=== PATIENT | female | born 1940 | race Caucasian/White ===

== ENCOUNTER → 2018-12-22 12:44 | Outpatient (CLI) | payer MEDICARE | END | disposition home or self-care (01) | LOC: D.HCCARDIO 12:44 | PROVIDERS: ATTEND Internal Medicine Cardiovascular Disease | DX: I48.0 Paroxysmal atrial fibrillation (principal) ==

== ENCOUNTER 2019-01-24 10:51 | Outpatient (CLI) | payer MEDICARE | END 2019-01-24 16:02 | disposition home or self-care (01) | LOC: D.CATH 10:51 | DX: I48.91 Unspecified atrial fibrillation (principal); I20.9 Angina pectoris, unspecified ==

== ENCOUNTER 2019-01-27 12:54 | Inpatient (IN) | payer MEDICARE ==
[~2019-01-27] VITALS: Ht 167.6 cm; Wt 96.1 kg
[~2019-01-27 12:54] MED LIST: BETAPACE 80 MG80 MG PO; COREG 3.1253.125 MG PO; COZAAR100 MG PO; ELIQUIS5 MG PO; GLYBURIDE5 M1 PO; KLOR-CON 1010 MEQ PO; NORVASC10 MG PO
[2019-01-27] MEDS ORDERED: METFORMIN HCL500 M1 PO (13:11)
[2019-01-27] MEDS ORDERED: GLUCOPHAGE500 MG PO (13:12)
[2019-01-27] MEDS ORDERED: LANOXIN125 MCG PO (13:13)
[2019-01-27] MEDS ORDERED: GLUCOSAMINE HC500 MG (13:14)
[2019-01-27 16:05] LABS: BASOPHILS 0.2 % (0-2); EOSINOPHILS 1.5 % (0-7); HEMATOCRIT 39.3 % (36.0-48.0); HEMOGLOBIN 13.1 g/dL (12-16); IMMATURE GRANULOCYTES 0.2 % (0-5); LYMPHOCYTES 12.7 % (15-50); MCH 30.8 pg (26.0-34.0); MCHC 33.3 g/dL (31.0-37.0); MCV 92.3 fL (80.0-100.0); MEAN PLATELET VOLUME 9.3 fL (7.4-10.4); MONOCYTES 5.9 % (2-11); NEUTROPHILS 79.5 % (40-80); PLATELET COUNT 334 10x3/uL (130-400); RBC 4.26 10x6/uL (4.00-5.40); RDW 13.5 % (11.5-14.5)
[2019-01-27 16:10] LABS: APPEARANCE CLEAR (CLEAR); BILIRUBIN NEGATIVE (NEGATIVE); COLOR YELLOW (YELLOW); GLUCOSE NEGATIVE (NEGATIVE); KETONE NEGATIVE (NEGATIVE); NITRITE NEGATIVE (NEGATIVE); PROTEIN NEGATIVE (NEGATIVE); SPECIFIC GRAVITY 1.015 (1.005-1.020); UROBILINOGEN NORMAL (NORMAL)
[2019-01-27 16:13] LABS: APTT 33.2 SECONDS (22.8-39.4); INR 1.28 (0.85-1.17); PROTIME 15.4 SECONDS (11.6-15.0)
[2019-01-27 16:30] LABS: ALBUMIN 3.8 g/dL (3.4-5.0); ANION GAP 13.3 mmol/L (8-16); BILIRUBIN - TOTAL 0.78 mg/dL (0.2-1.3); CALCIUM 9.3 mg/dL (8.5-10.1); POTASSIUM - SERUM 4.3 mmol/L (3.5-5.1); PROTEIN - SERUM 7.6 g/dL (6.4-8.2); THYROID STIMULATING HORMONE 2.02 uIU/mL (0.36-3.74); URIC ACID 4.4 mg/dL (2.6-7.2)
[2019-02-01] VITALS (8 sets, daily range): BP systolic 119–148; BP diastolic 55–73; BMI 82.5; BMI 33.4
[2019-02-01] MEDS ORDERED: K-TAB10 MEQ PO (10:35)
[2019-02-01] MEDS ORDERED: HYDROCHLOROTHIA25 MG PO (10:36)
--- NOTE | 2019-02-01 17:00 | NUR ---
PT ASSISTED INTO ICY BED, ADMISSION DATA DOCUMENTED, EKG DONE, MONITORS ON AND WORKING, VITALS STABLE, PT AWAKE AND ALERT, NO SIGNS/SYMPTOMS OF PAIN OR DISCOMFORT NOTED. CALL LIGHT WITHIN REACH.
--- NOTE | 2019-02-01 19:05 | NUR ---
Received patient resting in bed with eyes open, assessment completed per flowsheet. Patient AO x4, calm and cooperative. S1/S2 noted Controlled Afib with ST depression and occaisional PVC on telemetry. Breathing is even/unlabored on room air with O2 sat 97%, lung sounds clear throughout. Abdomen is soft/round with bowel sounds active x4, non-tender. All pulses palpable with cap refill < 3 sec, skin warm/dry. Denies pain or other needs at this time, see flowsheet for details. All VSS and will continue to monitor.
--- NOTE | 2019-02-01 21:00 | NUR ---
Patient resting in bed with eyes open, no visitors at this time. Discussed Pre-op procedures with all questions answered to satisfaction, no further needs at this time. All VSS and will continue to monitor.
--- NOTE | 2019-02-01 22:59 | NUR ---
Reassessment completed per flowsheet, no changes noted from previous assessment. S1/S2 noted Controlled Afib with occaisional PVC on telemetry. Breathing is even/unlabored on room air with O2 sat 96%, lung sounds clear throughout. All pulses palpable with cap refill < 3 sec, skin warm/dry. Denies pain or other needs at this time, see flowsheet for details. All VSS and will continue to monitor.
[2019-02-02] VITALS (63 sets, daily range): BP systolic 101–146; BP diastolic 37–74
--- NOTE | 2019-02-02 01:00 | NUR ---
Patient sleeping in bed with eyes closed, no s/s of distress at this time. No further needs, all VSS and will continue to monitor.
--- NOTE | 2019-02-02 02:58 | NUR ---
Reassessment completed per flowsheet, no changes noted from previous assessment. S1/S2 noted Controlled Afib with occaisional PVC on telemetry. Breathing is even/unlabored on room air with O2 sat 94%, lung sounds clear throughout. All pulses palpable with cap refill < 3 sec, skin warm/dry. Denies pain or other needs at this time, see flowsheet for details. All VSS and will continue to monitor.
--- NOTE | 2019-02-02 08:24 | NUR ---
REPORT RECIEVED FROM THE OFF GOING RN. ALREADY IN THE OR.
--- NOTE | 2019-02-02 10:33 | NUR ---
PT ARRIVED IN THE UNIT. PT HOOKED TO ICU MONITORS. PT REMAINS LETHARGIC FROM THE SURGERY. 1:1 CARE PROVIDED. PT NOTED TO BE IN CONTROL AFIB WITH A BBB. RIGHT JUGLAR DRESSING C/D/I. UNDER THE RIGHT JUGULAR DRESSING, IS ANOTHER DRESSING WITH A MICHAEL DRAIN WITH SCANT AMOUNT OF BLOODY DRAINAGE. BULB IS COMPRESSED. RIGHT AC IV NOTED PATENT. DRESSING C/D/I. RIGHT AISLINN NOTED WITH A GOOD WAVE FORM. CAP REFILL <3SECONDS. WRIST PROTECTOR ON. LEFT SUBCALVIAN CVL NOTED. DRESSING C/D/I. PT ARRIVED IN THE UNIT WITH PLASMALYTE AT 100ML/H, NITRO AT 10CC/H (33.33MCG/MIN) AND CLVIPREX AT 5CC/H (2.5MG/H). FC NOTED WITH CLEAR YELLOW URINE. TRACHEA MIDLINE. NO STRIDOR NOTED. CALL LIGHT IN REACH. WILL CONT 1:1 CARE.
--- NOTE | 2019-02-02 10:44 | NUR ---
CXR SHOT. PT STILL LETHARGIC BUT ABLE TO FOLLOW COMMANDS. SMILE SYMETRICAL. FREIGHT LOADER EQUAL AND STRONG. BLE EQUAL. WILL CONT POC.
--- NOTE | 2019-02-02 11:25 | NUR ---
PT MORE ALERT BUT STILL SLIGHTLY SLEEPY. PT A&OX4. CALM AND COOPERATIVE. SYMETRICAL SMILE. WILTON WEAVER EQUAL. TRACHEA MIDLINE. WILL CONT POC.
--- NOTE | 2019-02-02 12:30 | NUR ---
PT ADVANCED TO ICE CHIPS. PT TOLERATING WELL. NO DYSPAGIA NOTED. TRACHEA MIDLINE. NEUROCHECKS UNCHANGED.
--- NOTE | 2019-02-02 14:20 | NUR ---
PAGED MANUFACTURING ANALYST FOR DR CRA TO NOTIFY HIM ABOUT CONTSULT. DR PATEL MANUFACTURING ANALYST AND STATED THAT HE WILL NOTIFY DR CAR OF THE PTS CONSULT.
--- NOTE | 2019-02-02 16:00 | NUR ---
MEAL TRAY PROVIDED FOR THE PT. PT A&O X4. TRACHEA MIDLINE. NEUROCHECKS WNLS. WILL CONT POC.
--- NOTE | 2019-02-02 19:30 | NUR ---
Received patient resting in bed with eyes open, assessment completed per flowsheet. Patient AO x4, calm and cooperative. R anterior neck incision dressing CDI, no difficulties breathing/swallowing noted. S1/S2 noted Controlled Afib with BBB on telemetry. Breathing is even/unlabored on 2L via NC with O2 sat 97%, lung sounds clear throughout. R upper chest incision dressing CDI, MICHAEL x1 with small bloody drainage. Abdomen is round/soft with bowel sounds hypoactive x4, non-tender. Unger secured, concentrated yellow urine noted. R radial A-line with good waveform, remaining pulses palpable with cap refill < 3 sec. Patient denies pain or other needs at this time, repositioned for comfort. See flowhseet for details, all VSS and will continue to monitor.
--- NOTE | 2019-02-02 21:10 | NUR ---
Patient resting in bed with eyes closed, HS given without difficulty. Denies pain or other needs at this time, all VSS and will continue to monitor.
--- NOTE | 2019-02-02 23:15 | NUR ---
Reassessment completed per flowsheet, no changes noted from previous assessment. Patient AO x4, calm and cooperative. R anterior neck incision dressing CDI, no difficulties swallowing/breathing noted. S1/S2 noted Controlled Afib with BBB on telemetry. Breathing is even/unlabored on 2L via NC with O2 sat 94%, lung sounds clear throughout. R upper chest MICHAEL x1 with small bloody drainage, dressing CDI. R radial A-line positional with poor waveform, repositioned and flushed with no improvement. Remaining pulses palpable with cap refill < 3 sec, skin warm/dry. Denies pain or other needs, see flowsheet for details. All VSS and will continue to monitor.
--- NOTE | 2019-02-02 23:30 | NUR ---
R radial A-line waveform flat, repositioned and flushed without success. A-line highly positional and unable to obtain accurate reading, will use NIBP for BP.
[2019-02-03] VITALS (42 sets, daily range): BP systolic 103–135; BP diastolic 41–88; Ht 167.6 cm; Wt 96.1 kg
--- NOTE | 2019-02-03 03:10 | NUR ---
Reassessment completed per flowsheet, no change noted from previous assessment. R anterior neck incision dressing CDI, R upper chest incision dressing CDI. S1/S2 noted Controlled Afib with BBB on telemetry. Breathing is even/unlabored on 2L via NC with O2 sat 95%, lung sounds clear throughout. R upper chest MICHAEL x1 with small bloody drainage, dressing CDI. R radial A-line with flat waveform, positional unsuccessful attempt at flushing/repositioning. Remaining pulses palpable with cap refill < 3 sec, skin warm/dry. Denies pain or other needs at this time, see flowsheet for details. All VSS and will continue to monitor.
[2019-02-03 06:36] LABS: INR 1.19 (0.85-1.17); PROTIME 14.6 SECONDS (11.6-15.0)
[2019-02-03 06:42] LABS: HEMATOCRIT 32.4 % (36.0-48.0); HEMOGLOBIN 10.8 g/dL (12-16); MCH 30.5 pg (26.0-34.0); MCHC 33.3 g/dL (31.0-37.0); MCV 91.5 fL (80.0-100.0); MEAN PLATELET VOLUME 9.7 fL (7.4-10.4); RBC 3.54 10x6/uL (4.00-5.40); RDW 13.5 % (11.5-14.5); WBC 13.8 10x3/uL (4.8-10.8)
[2019-02-03 06:45] LABS: ANION GAP 12.1 mmol/L (8-16); BILIRUBIN - TOTAL 0.53 mg/dL (0.2-1.3); CALCIUM 8.1 mg/dL (8.5-10.1); CARBON DIOXIDE 27.8 mmol/L (21.0-32.0); CREATININE - SERUM 1.4 mg/dL (0.6-1.3); POTASSIUM - SERUM 3.9 mmol/L (3.5-5.1); PROTEIN - SERUM 6.1 g/dL (6.4-8.2)
--- NOTE | 2019-02-03 11:28 | OP ---
PATIENT NAME: MILI NATH MEDICAL RECORD: [id number] :40 LOCATION:[id number] ADMISSION DATE:02/01/19 SURGEON: OLIVIER MONTES MD DATE OF OPERATION: 02/02/2019 PROCEDURE PERFORMED: Right carotid endarterectomy. SURGEON: Olivier Montes MD STATIONARY STEAM ENGINEER: [place] Wiseman. ANESTHESIA: General endotracheal anesthesia. ESTIMATED BLOOD LOSS: 20 cc. SPECIMENS: Plaque. PREOPERATIVE DIAGNOSIS: Right carotid stenosis. POSTOPERATIVE DIAGNOSIS: Right carotid stenosis. CONDITION: Stable. DISPOSITION: CV ICU. OPERATIVE FINDINGS: 1. Discrete irregular and calcified plaque in the carotid bulb and proximal right internal carotid artery. The plaque feathered well, was tacked distally and a CorMatrix patch was used for closure. 2. Neurologically intact to CV ICU. OPERATIVE INDICATION: Severe coronary artery disease and severe right carotid stenosis. DESCRIPTION OF PROCEDURE: The patient was brought to the operating suite. The incision was made in the neck and taken down through the subcutaneous tissue and platysma. The common carotid was dissected out, encircled with a vessel loop. External carotid was dissected out and encircled with vessel loop. Internal carotid was dissected out. Heparin was given. After the heparin had circulated, backbleeding was controlled with a bulldog clamp and flow with a vascular clamp and backbleeding. The external carotid controlled with a vessel loop. EEG was monitored for 2 minutes and normal. The incision was made in the common carotid artery, taken out through the region of dense calcifications to a relative normal region of internal carotid. The endarterectomy was begun by dividing the plaque in the common carotid artery out to the external carotid with an eversion endarterectomy. The plaque feathered well distally. Thorough irrigation was taken. All bits of loose debris were removed. The plaque was tacked with 7-0 Prolene interrupted in the internal carotid and a CorMatrix patch was fashioned to its appropriate size, sutured along the edge of the arteriotomy. Prior to completing the anastomosis, backbleeding was allowed from all 3 major vessels, then the anastomosis was completed. After thorough irrigation of the endarterectomy bed, flow restored first with external carotid and then with internal carotid. Hemostasis was ensured with single patch sutures. A drain was placed through a separate stab wound. Protamine was given. Irrigation was undertaken. Neck was closed in 3 layers including OPERATIVE REPORT [id number] MILI NATH Dermabond on the skin and the patient was neurologically intact after extubation to the ICU. TRANSINT:[id number] Voice Confirmation ID: [id number] DOCUMENT ID: [id number] OLIVIER MONTES MD at 1128 CC: ANDRES CAR [id number] DICTATION DATE: 02/02/19 1516 BUSINESS EDUCATION PROFESSOR: 02/02/19 1714 ADM IN [place] [id number] [place] [id number]
[2019-02-03] MEDS ORDERED: NORVASC5 MG PO (11:32)
[2019-02-03] MEDS ORDERED: ULTRAM50 MG PO (11:33)
[2019-02-03] MEDS ORDERED: ASPIRIN81 MG PO (11:33)
--- NOTE | 2019-02-03 13:40 | NUR ---
1100: O2 DC'D. 1120: R RADIAL ART LINE DC'D. MANUAL PRESSURE HELD X 2 MIN. DRESSED WITH 2X2. 1130: PUMA SEGURA'Wolgfang.
--- NOTE | 2019-02-03 13:57 | NUR ---
1430: R UPPER CHEST MIHCAEL DRAIN DC'D. 1445: L SUBCLAVIAN DC'D 1450: SALINE LOCK R AC DC'D.
--- NOTE | 2019-02-03 14:37 | NUR ---
1420: VOIDED FOR 1ST TIME AFTER BARTHOLOMEW REMOVED. 1425: PREPARING FOR DISCHARGE.
--- NOTE | 2019-02-03 15:04 | NUR ---
1455: DISCHARGE INSTRUCTIONS REVIEW WITH PATIENT AND DAUGHTER. 1500: DISCHARGED HOME. ESCORTED TO VEHICLE VIA WHEELCHAIR.
--- NOTE | 2019-02-03 19:31 | MORECARE ---
CASE MANAGEMENT DISCHARGE SUMMARY PATIENT: MILI NATH UNIT: [id number] ADM DATE: 02/01/19 AGE: 78 : 40 SEX: F [facility] AUTHOR: [email or web address] PHYSICIAN: REFERRING PHYSICIAN: KAT MONTES MD DATE OF SERVICE: 02/03/19 Discharge Plan Patient Name: MILI NATH Facility: [facility]:[place] : 1940 Planned Disposition: Home Anticipated Discharge Date: Discharge Date: 02/03/2019 Expected LOS: Initial Reviewer: [email or web address] Initial Review Date: 02/03/2019 Generated: 02/03/19 8:31 pm Comments DCP- Discharge Planning Updated by [email or web address]: Dahiana Love on 02/03/19 6:[address] CM met with patient and daughter(Ulices) at bedside after explaining CM role and obtaining verbal consent. Patient lives at home alone and plans to return there upon discharge. Patient feels this would be a safe discharge. CM discussed availability / needs of home health and medical equipment. Patient denies any discharge needs at this time. Patient states her daughter will be staying with her for the next several weeks. Patient states she will have Ulices drive her home upon discharge. CM will continue to follow and assist as needed with discharge planning / needs. DCPIA - Discharge Planning Initial Assessment Updated by [id number]: Dahiana Love on 02/03/19 7:25 pm * Is the patient Alert and Oriented? Yes * How many steps to enter\exit or inside your home? * PCP JOSEP * [facility]acy [facility] * Preadmission Environment Home Alone * ADLs Independent * Equipment None * List name and contact numbers for known caregivers / representatives who currently or will assist patient after discharge: ULICES NATH - DAUGHTER- [phone], * Verbal permission to speak to the caregivers and representatives has been obtained from the patient. Yes * Community resources currently utilized None * Additional services required to return to the preadmission environment? No * Can the patient safely return to the preadmission environment? Yes * Has this patient been hospitalized within the prior 30 days at any hospital? No Patient Name: MILI NATH Page 14210 at 1931 All edits/amendments must be made on the electronic document DICTATION DATE: 02/03/191930 PROCESS LABORATORY SPECIALIST: ALEX 02/03/191930 RPT#: [id number] DC DATE:02/03/19 STATUS: DIS IN [facility] [address] [place] [address] END OF REPORT
== END 2019-02-03 15:00 | disposition home or self-care (01) | DRG 39 ==
LOC: D.SDCHOLD 13:30 → D.CVICU 02-01 10:00 → D.SDCHOLD 02-01 13:30 → D.CVICU 02-01 15:33
PROVIDERS: Internal Medicine Cardiovascular Disease; ADMIT Thoracic Surgery (Cardiothoracic Vascular Surgery); ATTEND Thoracic Surgery (Cardiothoracic Vascular Surgery)
PROC: 03UK0JZ Supplement Right Internal Carotid Artery with Synthetic Substitute, Open Approach (ICD-10-PCS; 2019-02-02)
PROC: 03CK0ZZ Extirpation of Matter from Right Internal Carotid Artery, Open Approach (ICD-10-PCS; principal; 2019-02-02 07:30)
DX: I65.21 Occlusion and stenosis of right carotid artery (principal); I25.10 Atherosclerotic heart disease of native coronary artery without angina pectoris; E11.9 Type 2 diabetes mellitus without complications; I10 Essential (primary) hypertension; I48.2 Chronic atrial fibrillation

== ENCOUNTER → 2019-01-30 13:41 | Outpatient (CLI) | payer MEDICARE ==
[2019-01-24 16:10] VITALS: BMI 33.9
[~2019-01-30 13:41] MED LIST changes: +ASPIRIN81 MG PO; +COLACE100 MG PO; +COZAAR50 MG PO; +GLUCOPHAGE500 MG PO; +GLUCOSAMINE HC500 MG; +HYDROCHLOROTHIA25 MG PO; +K-DUR20 MEQ PO; +K-TAB10 MEQ PO; +LANOXIN125 MCG PO; +LASIX40 MG PO; +LOPRESSOR25 MG PO; +METFORMIN HCL500 M1 PO; +NORVASC5 MG PO; +PERCOCET 5-3251 TAB PO; +ULTRAM50 MG PO
== END | disposition home or self-care (01) ==
LOC: D.CT 13:41
PROVIDERS: ATTEND Thoracic Surgery (Cardiothoracic Vascular Surgery)
DX: R93.89 Abnormal findings on diagnostic imaging of other specified body structures (principal)

== ENCOUNTER 2019-02-06 05:20 | Inpatient (IN) | payer MEDICARE ==
[2019-02-06] VITALS (47 sets, daily range): BP systolic 107–148; BP diastolic 47–74; BMI 34.6
[~2019-02-06 05:20] MED LIST changes: -COLACE100 MG PO; -COZAAR50 MG PO; -K-DUR20 MEQ PO; -LASIX40 MG PO; -LOPRESSOR25 MG PO; -PERCOCET 5-3251 TAB PO
--- NOTE | 2019-02-06 16:00 | NUR ---
PT ARRIVED TO ROOM AROUND 1500 ON VENT. 8.0 ETT, 23 AT THE LIP. VENT SETTINGS ON TIME OF ARRIVAL R-14, TV 550, FIO2 100%, PEEP 5. MIDSTERNAL INCISION NOTED WITH DRESSING CDI. SUBSTERNAL CT X 3 (2Y'D TOGETHER), L HENRY DRAIN IN PLACE. CT CONNECTED TO 20CM SUCTION, NO AIR NOTED. BARTHOLOMEW IN PLACE WITH YELLOW URINE NOTED. RLE HARVEST SITES WITH COBAN DRESSING FROM GROIN TO ANKLE. HAS R-RADIAL AISLINN. CVL ON LIJ. SEE IV FLOWSHEET FOR DRIPS. ASSESSMENT CHARTED IN FLOWSHEET. SAFETY MEASURES IN PLACE. WILL CONTINUE TO MONITOR.
--- NOTE | 2019-02-06 17:05 | MORECARE ---
CASE MANAGEMENT DISCHARGE SUMMARY PATIENT: MILI NATH UNIT: [id number] ADM DATE: 02/06/19 AGE: 78 : 40 SEX: F ROOM/BED: [facility] AUTHOR: LILIA CHAVEZ PHYSICIAN: REFERRING PHYSICIAN: KAT MONTES MD DATE OF SERVICE: 02/06/19 Discharge Plan Patient Name: MILI NATH Facility: [facility]:[place] : 1940 Planned Disposition: Home Anticipated Discharge Date: Discharge Date: Expected LOS: Initial Reviewer: [email or web address] Initial Review Date: 02/06/2019 Generated: 02/06/19 6:04 pm Patient Name: MILI NATH Page [phone] at 1705 All edits/amendments must be made on the electronic document DICTATION DATE: 02/06/191703 STRATEGY LEAD: ALEX 02/06/191703 RPT#: [id number] DC DATE: STATUS: ADM IN [facility] [address] [place] [address] END OF REPORT
--- NOTE | 2019-02-06 17:08 | NUR ---
BLOOD GLUCOSE 203. REGULAR INSULIN DRIP INITIATED AT THIS TIME PER ORDERS.
--- NOTE | 2019-02-06 17:16 | MORECARE ---
CASE MANAGEMENT DISCHARGE SUMMARY PATIENT: MILI NATH UNIT: [id number] ADM DATE: 02/06/19 AGE: 78 : 40 SEX: F ROOM/BED: [facility] AUTHOR: LILIA CHAVEZ PHYSICIAN: REFERRING PHYSICIAN: KAT MONTES MD DATE OF SERVICE: 02/06/19 Discharge Plan Patient Name: MILI NATH Facility: [facility]:[place] : 1940 Planned Disposition: Home Anticipated Discharge Date: Discharge Date: Expected LOS: Initial Reviewer: [email or web address] Initial Review Date: 02/06/2019 Generated: 02/06/19 6:16 pm Comments DCP- Discharge Planning Updated by [email or web address]: Dahiana Love on 02/06/19 4:[address] Patient Name: MILI NATH Admission Status: Urgent Accout number: [id number] Admission Date: 02-06-2019 : 1940 Admission Diagnosis: Attending: KAT MONTES Current LOS: 1 Anticipated DC Date: Planned Disposition: Home Primary Insurance: [facility] [employer] Discharge Planning Comments: CM met with patient and daughter(Ulices) at bedside after explaining CM role and obtaining verbal consent. Patient lives at home alone and plans to return there upon discharge. Patient feels this would be a safe discharge. CM discussed availability / needs of home health and medical equipment. Patient denies any discharge needs at this time. Patient states her daughter will be staying with her for the next several weeks. Patient states she will have Ulices drive her home upon discharge. CM will continue to follow and assist as needed with discharge planning / needs. Transcribing Machine Operator: Dahiana Love DCPIA - Discharge Planning Initial Assessment Updated by [id number]: Dahiana Love on 02/06/19 5:05 pm * Is the patient Alert and Oriented? No * How many steps to enter\exit or inside your home? * PCP JOSEP * [facility]acy [facility] * Preadmission Environment Home Alone * ADLs Independent * Equipment None * List name and contact numbers for known caregivers / representatives who currently or will assist patient after discharge: ULICES NATH - DAUGHTER -[phone], * Verbal permission to speak to the caregivers and representatives has been obtained from the patient. N/A * Community resources currently utilized None * Additional services required to return to the preadmission environment? No * Can the patient safely return to the preadmission environment? Yes * Has this patient been hospitalized within the prior 30 days at any hospital? Yes Last DP export: 02/06/19 4:04 p Patient Name: MILI NATH Page [phone] at 1716 All edits/amendments must be made on the electronic document DICTATION DATE: 02/06/191715 RN OSTOMY: ALEX 02/06/191715 RPT#: [id number] DC DATE: STATUS: [facility] [address] [place] [address] END OF REPORT
--- NOTE | 2019-02-06 18:00 | NUR ---
DR. MONTES AT BEDSIDE. CHANGED PACEMAKER SETTING TO AAI RATE 80 AMA 15.
--- NOTE | 2019-02-06 19:00 | NUR ---
REPORT RECEIVED, INITIAL ASSESSMENT COMPLETE SEE FLOW SHEET FOR FURTHER, PT INTUBATED ON VENT SETTINGS PER ORDERS/RT, PT OPENS EYES AND FOLLOWS COMMANDS, LEFT IJ CVL DRSG C/D/I INFUSING MEDS PER ORDERS; SEE IV DRIP SHEET FOR FURTHER, RT ANTERIOR NECK INCISION FROM RCEA ON 02/03/19, SITE C/D/I PARAOPTOMETRIC, MIDSTERNAL DRSG C/D/I, SUBSTERNAL DRSG WITH TPM WIRES CONNECTED TO PACEMKER WITH SETTINGS PER , PACEMAKER NOTED ON CM, CTx3 WITH ANTERIOR CT Y'D, CT TO 20CM SUCTION WITH NO AIR LEAK NOTED, SUBSTERNAL HENRY DRAIN INTACT/COMPRESSED, RLE HARVEST SITE, COBAN DRSG FROM GROIN TO ANKLE C/DI, CRITICORE BARTHOLOMEW CATH, RIGHT RADIAL ART LINE WITH GOOD WAVEFORM ON CM, SMC INTACT, CVP MONITORING, VSS, PPP, WILL CONTINUE TO MONITOR
--- NOTE | 2019-02-06 20:45 | NUR ---
UPDATED ON PT AND ABG'S, SINCERE RT AT BEDSIDE, IS OK WITH PT BEING EXTUBATED. PT EXTUBATED AT 2047, VSS, PLACED ON NC @5L/MIN, WILL CONTINUE TO MONITOR
[2019-02-07] VITALS (96 sets, daily range): BP systolic 105–147; BP diastolic 45–66; BMI 35.5
--- NOTE | 2019-02-07 01:00 | NUR ---
PT RESTING COMFORTABLY IN BED, LARGE ICE H20 GIVEN PER REQUEST, PT ABLE TO SWALLOW WITHOUT S/S OF DISTRESS, VSS, WILL CONTINUE TO MONITOR
--- NOTE | 2019-02-07 01:30 | NUR ---
PT REPOSITIONED WITH ASSIST AND DANGLED ON BEDSIDE FOR 10MIN, NO S/S OF ACUTE DISTRESS NOTED, VSS, REPOSITIONED FOR COMFORT IN BED, PT DENIES NEEDS AT THIS TIME, CHARLIE CONTINUE TO MONITOR
--- NOTE | 2019-02-07 05:38 | NUR ---
REASSESSMENT COMPLETE SEE FLOW SHEET, PT AAOx4, SWALLOWS FLUIDS WITHOUT DISTRESS, ALL DRSG'S C/D/I, VSS, PPP, WILL CONTINUE TO MONITOR
[2019-02-07 06:00] LABS: HEMATOCRIT 31.9 % (36.0-48.0); HEMOGLOBIN 10.8 g/dL (12-16); MCH 29.8 pg (26.0-34.0); MCHC 33.9 g/dL (31.0-37.0); MCV 88.1 fL (80.0-100.0); MEAN PLATELET VOLUME 9.4 fL (7.4-10.4); RBC 3.62 10x6/uL (4.00-5.40); RDW 15.5 % (11.5-14.5); WBC 17.7 10x3/uL (4.8-10.8)
--- NOTE | 2019-02-07 06:00 | NUR ---
BATH WITH NEW GOWN AND LINEN COMPLETED, PT OOB TO CHAIR WITH ASSIST FROM ABRASIVE WATER JET CUTTER OPERATOR SCOTTY, PT TOLLERATED MOVEMENT WELL, VSS, WILL CONTINUE TO MONITOR
[2019-02-07 06:16] LABS: ALBUMIN 2.6 g/dL (3.4-5.0); ANION GAP 11.5 mmol/L (8-16); BILIRUBIN - TOTAL 0.67 mg/dL (0.2-1.3); CALCIUM 7.6 mg/dL (8.5-10.1); CARBON DIOXIDE 28.4 mmol/L (21.0-32.0); POTASSIUM - SERUM 3.9 mmol/L (3.5-5.1); PROTEIN - SERUM 4.7 g/dL (6.4-8.2)
[2019-02-07 06:26] LABS: CREATININE - SERUM 1.3 mg/dL (0.6-1.3)
--- NOTE | 2019-02-07 06:30 | NUR ---
PACEMAKER FIRING BUT NOT CAPTURING ON CM, 0636: NOTIFIED AND UPDATED, 0637: ORDERS RECEVED TO TURN OFF TPM AND AMIODARONE. WILL CONTINUE TO MONITOR. 0645: REPORT GIVEN TO DAY SHIFT RN
--- NOTE | 2019-02-07 07:47 | NUR ---
DR. MONTES AT BEDSIDE. ORDERED DOBUTAMINE TO BE DECREASED TO 3MCG/KG/MIN AT THIS TIME. ALSO ORDERED AISLINN TO BE DISCONTINUED AND 12 LEAD EKG.
--- NOTE | 2019-02-07 07:51 | OP ---
PATIENT NAME: MILI NATH MEDICAL RECORD: [id number] :40 LOCATION:D.CVI D.CV04 ADMISSION DATE:02/06/19 SURGEON: OLIVIER MONTES MD DATE OF OPERATION: 02/06/2019 SURGEON: Olivier Montes MD ANIMAL ATTENDANT: Montana Wiseman OPERATION PERFORMED: 1. Coronary artery bypass graft times 4 (left internal mammary artery to LAD, reverse saphenous vein graft from aorta to first diagonal, aorta to ramus intermedius, and aorta to right coronary artery). 2. Endoscopic saphenous vein harvest. 3. Surgical Maze procedure with radiofrequency ablation on the right and left side of the heart, and cryo. 4. Left atrial appendage occlusion device application. PREOPERATIVE DIAGNOSIS: Coronary artery disease and atrial fibrillation. POSTOPERATIVE DIAGNOSIS: Coronary artery disease and atrial fibrillation. ANESTHESIA: General endotracheal anesthesia. ESTIMATED BLOOD LOSS: Total cardiopulmonary bypass with Cell Saver re-transfusion and 2 packed red blood cells. COMPLICATIONS: None. SPECIMENS: None. CONDITION: Stable. DISPOSITION: To the CV ICU. OPERATIVE FINDINGS: 1. Transesophageal echocardiography revealed 35% ejection fraction with septal dyskinesis, this persisted after coronary artery bypass graft. 2. Moderately varicose and thin veins harvested endoscopically from the right lower extremity. 3. Full surgical Maze procedure and placement of left atrial appendage occlusion device using AtriCure radiofrequency and cryo system. 4. LAD 1.5 mm with severe disease, anastomosis, and plaque. Good Doppler signal after anastomosis and after reversal of the heparin. 5. First diagonal 1.5 mm with severe disease. 6. Ramus intermedius 2.0 mm with severe disease out to the bifurcation point. 7. Codominant right coronary artery 1.5 mm with severe disease. 8. Paced off cardiopulmonary bypass with underlying junctional rhythm. OPERATIVE INDICATION: Atrial fibrillation and coronary artery disease. DESCRIPTION OF PROCEDURE: The patient was brought to the operating suite. General anesthesia was obtained. The patient was prepped and draped. Greater saphenous vein harvested endoscopically from the right lower extremity. Side branches were divided by electrocautery. The vessels were ligated, proximal and OPERATIVE REPORT [id number] HARI NATHVICKY Dutton distal, and removed. Side branches were oversewn or tied. Later, the leg was closed in 2 layers and wrapped with an elastic wrap. Median sternotomy incision was made. Subcutaneous tissue divided with electrocautery. The sternum was divided with a saw. The left hemisternum was elevated. The left lower cavity was entered. Left lobe remains taken down as a pedicle graft. Sternal retractor was placed. Pericardium was opened. Heparin was given. The aorta was cannulated. Bicaval cannulation was performed. Superior vena cava and inferior vena cava were free. The internal mammary was clipped distally and made ready for anastomosis. The patient was placed on cardiopulmonary bypass after activated clotting time was appropriately elevated. Sites for distal anastomosis were selected. The left pulmonary veins and the right pulmonary veins were encircled and pulmonary vein radiofrequency ablation was performed. An opening was made in the right atrium and the right atrial radiofrequency ablation sites were made. Then, a pursestring was placed and the retrograde cardioplegia cannula was inserted. Antegrade cardioplegia cannula was inserted. The patient was cooled. Crossclamp was placed. Cardioplegia was given antegrade and retrograde and this was repeated at 15 to 20 minutes and the crossclamp time including down the completed vein grafts. The right atrium was opened and the interatrial groove and the box lesion was completed with radiofrequency ablation and the 2 interatrial and one epicardial cryo lesion was performed. The mitral valve appeared to be normal. The left atrium was later closed with a pledgeted Prolene suture line. Distal anastomoses were performed in a standard technique. Proximal anastomosis with a single cross-clamp technique. Left ventricular apex was de-aired and the crossclamp was removed. Aortic root was de-aired. Proximal anastomoses were tied down. Vein grafts were de-aired and flow restored. Transesophageal echocardiography confirmed no air. The patient was paced with atrial and ventricular pacing wires, fully rewarmed, weaned from cardiopulmonary bypass and was stable. The patient was decannulated. The cannula sites were oversewn in the retrograde site and in the aorta and then protamine was given. Graft lay appropriately. Hemostasis was ensured. Left chest was evacuated and irrigated. Pericardial fat was loosely reapproximated in the midline. The internal mammary harvest site was inspected for bleeding. Sternum was closed with wires. Fascia was closed. Subcutaneous tissue was closed. Skin was closed. Dermabond was placed. The needle and sponge counts reported correct and the patient was taken to the ICU in stable condition. TRANSINT:[id number] Voice Confirmation ID: [id number] DOCUMENT ID: [id number] OLIVIER MONTES MD at 0751 CC: SARY WEST M.D. and ANDRES CAR [id number] DICTATION DATE: 02/06/191720 PSYCHOLOGICAL OPERATIONS OFFICER: 02/06/192056 ADM IN [facility] [address] [id number]
--- NOTE | 2019-02-07 09:52 | NUR ---
AM MEDS GIVEN. SUBSTERNAL DRESSING CHANGED PER ORDERS. CTX3 IN PLACE TO 20CM SUCTION. HENRY DRAIN IN PLACE. TPM WIRES CONNECTED. PACEMAKER OFF AT THIS TIME. NO SIGNS OF INFECTION NOTED. WILL CONTINUE TO MONITOR.
--- NOTE | 2019-02-07 14:50 | NUR ---
CHEST TUBES REMOVED BY DR. MONTES. SUBSTERNAL DRESSING REPLACED AT THIS TIME. HENRY DRAIN REMAINS IN PLACE. PT RESTING IN BED. WILL CONTINUE TO MONITOR.
[2019-02-07 17:47] LABS: CHOL - HDL RATIO 3.6 ratio (2.3-4.1); LDL-HDL RATIO 1.8 ratio (1.5-3.5)
--- NOTE | 2019-02-07 18:06 | NUR ---
ATE ABOUT 50% OF DINNER. ASSITED PT BACK TO BED. WILL COTNINUE TO MONITOR.
--- NOTE | 2019-02-07 18:18 | NUR ---
PERCOCET 5 GIVEN FOR PAIN AT THIS TIME. WILL CONTINUE TO MONITOR.
--- NOTE | 2019-02-07 19:18 | NUR ---
REPORT RECEIVED, SHIFT ASSESSMENT COMPLETED PER FLOW SHEET. PPP. LT IJ CVL PATENT, INFUSING DOBUTAMINE AT 3 MCG/KG/MIN INFORMED BY DAY SHIFT RN THAT THIS IS A SET RATE PER DR. MONTES'S ORDERS, INSULIN DRIP AT 2 UNITS/HR, AND NITROGLYCERIN DRIP AT 4 ML/HR. BARTHOLOMEW CATHER TO GRAVITY SECURED, DRAINING YELLOW URINE. ANGY HOSE AND SCD'S ON. DENIES PAIN OR NEEDS. CALL LIGHT WITHIN REACH. SEE FLOW SHEET FOR COMPLETE ASSESMENT. WILL CONTINUE TO MONITOR.
--- NOTE | 2019-02-07 20:51 | NUR ---
SCHEDULED MEDS GIVEN, WATER PROVIDED, NO DIFFICULTY SWALLOWING. DENIES NEEDS. CALL LIGHT WITHIN REACH.
--- NOTE | 2019-02-07 22:07 | NUR ---
POTASSIUM RESULT NOW AVAILABLE. 10 MEQ OF KCL INFUSING PER PROTOCOL VIA LT IJ CVL.
--- NOTE | 2019-02-07 23:18 | NUR ---
REASSESSMENT COMPLETED PER FLOW SHEET, SEE FOR DETAILS. NO ACUTE DISTRESS NOTED. DENIES NEEDS. CALL LIGHT WITHIN REACH. WILL CONTINUE TO MONITOR.
[2019-02-08] VITALS (39 sets, daily range): BP systolic 102–166; BP diastolic 52–74
--- NOTE | 2019-02-08 01:38 | NUR ---
CALL LIGHT ANSWERED, C/O PAIN, PRN PERCOCET GIVEN, SEE EMAR FOR DETAILS. ASSISSTED WITH REPOSITIONING IN BED FOR COMFORT, DENIES OTHER NEEDS. CALL LIGHT WITHIN REACH.
--- NOTE | 2019-02-08 03:12 | NUR ---
REASSESSMENT COMPLETED PER FLOW SHEET, SEE FOR DETAILS. NO ACUTE CHANGES NOTED. DENIES PAIN OR NEEDS. WILL CONTINUE TO MONITOR.
--- NOTE | 2019-02-08 05:00 | NUR ---
COMPLETE BED BATH GIVEN, BARTHOLOMEW CARE PROVIDED. SUBSTERNAL DRESSING CHANGED, TPM WIRES SECURED. TOLERATED ALL WELL. DENIES NEEDS. CALL LIGHT WITHIN REACH.
--- NOTE | 2019-02-08 05:50 | NUR ---
ASSISSTED OOB TO CHAIR, X2 PERSON ASSISST. DENIES NEEDS. CALL LIGHT WITHIN REACH. WILL CONTINUE TO MONITOR.
[2019-02-08 06:26] LABS: HEMATOCRIT 31.8 % (36.0-48.0); HEMOGLOBIN 10.5 g/dL (12-16); MCH 29.4 pg (26.0-34.0); MCV 89.1 fL (80.0-100.0); MEAN PLATELET VOLUME 9.7 fL (7.4-10.4); RBC 3.57 10x6/uL (4.00-5.40); RDW 15.3 % (11.5-14.5); WBC 20.1 10x3/uL (4.8-10.8)
[2019-02-08 07:03] LABS: ALBUMIN 2.7 g/dL (3.4-5.0); ANION GAP 12.8 mmol/L (8-16); BILIRUBIN - TOTAL 1.05 mg/dL (0.2-1.3); CARBON DIOXIDE 26.7 mmol/L (21.0-32.0); CREATININE - SERUM 1.2 mg/dL (0.6-1.3); POTASSIUM - SERUM 3.5 mmol/L (3.5-5.1); PROTEIN - SERUM 5.3 g/dL (6.4-8.2)
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
--- NOTE | 2019-02-08 10:30 | NUR ---
DR MANZANARES IN UNIT AND NOTIFIED THAT TPM NOT PACING CORRECTING AND HR DOES SHOW TO DROP OCCASIONALLY, ORDERS TO DROP SENSITIVITY FROM 2.0 TO 0.8.
--- NOTE | 2019-02-08 10:54 | NUR ---
TPM CONTINUED TO FAIL TO CAPTURE, DR MANZANARES IN UNIT CHANGED VMA TO 20
--- NOTE | 2019-02-08 11:20 | TEE ---
PATIENT:MILI NATH MEDICAL RECORD: [id number] LOCATION:[place] [address] AGE OF PATIENT: 78 ADMISSION DATE: 02/06/19 SEX: F REFERRING PHYSICIAN: INTERPRETING PHYSICIAN: DANIELA CRAIG MD TRANSESOPHAGEAL ECHOCARDIOGRAM Date: 02/06/19 HÉCTOR CHARGE Y INDICATIONS: CABG PREMEDICATIONS: PATIENT'S RESPONSE PROCEDURE DOPPLER MEASUREMENTS: LVIT LA PA RA LVOT RVOT Asc. Ao AV Gradient Peak AV Mean AV Area MV Gradient Peak MV Mean MV Area INTERPRETATION: Doppler: 2-D: COLOR FLOW DOPPLER NORMAL SALINE STUDY: MISCELLANOUS: DIAGNOSIS: PLAN: Brick Setter Operator:2 Dr. Crowder Gyn: Lexi POSADA COMMENTS: DATE OF SERVICE: 02/07/2019 PROCEDURE: Transesophageal echo evaluation of valvular structures during bypass surgery. FINDINGS: 1. Left ventricular chamber size is mildly dilated. Left ventricular systolic function is [id number]-[id number] reduced at 35% to 40%. 2. Left atrium, right atrium, and right ventricular chamber sizes are within TRANSESOPHAGEAL ECHOCARDIOGRAM REPORT [id number] MILI NATH normal limit. 3. Valvular structures have normal structure and motion. 4. Doppler interrogation reveals mild mitral regurgitation. No other valvular insufficiency or stenosis. 5. No evidence of pericardial effusion or left ventricular thrombus. TRANSINT:[id number] Voice Confirmation ID: [id number] DOCUMENT ID: [id number] at 1120 CC: [id number] DICTATION DATE: 02/07/19 1213 MACHINE CHAIN MAKER: 02/07/19 2157 ADM IN [id number] [place] [address]
--- NOTE | 2019-02-08 11:33 | NUR ---
tpm conitnues to fail to capture, per dr bowling vma turned up to 25
--- NOTE | 2019-02-08 17:10 | NUR ---
1300 ATE 100% LUNCH 1400 TPM FAILING TO CAPTURE, PT ASSISTED TO BED DR MONTES NOTIFIED, IN UNIT AND CHANGED POLORIZATION OF VENTRICULAR TPM WIRES, CAPTURE NOTED ON MONITOR AND TPM, SUBSTERNAL DRESSING CHANGED 1600 ASSISTED UP TO CHAIR,I&OS DONE. 1700 DINNER TRAY SERVED
--- NOTE | 2019-02-08 18:03 | NUR ---
1700 DR MONTES CHANGED TPM RATE VVI70
--- NOTE | 2019-02-08 19:30 | NUR ---
PATIENT BACK TO BED WITH ASSIST FROM CHAIR. SHIFT ASSESSMENT COMPLETE. CALL LIGHT WITHIN REACH, BED IN LOW POSITION.
--- NOTE | 2019-02-08 21:40 | NUR ---
DRESSING CHANGED WITH ASEPTIC TECHINQUE USED. DUE TO SEROSANG SATURATION. PREVIOUS CT SITES ARE WITHOUT REDNESS OR EDEMA NOTED. TPM WIRES SECURE. HENRY DRAIN SITE IS WITHOUT REDNESS OR EDEMA NOTED.
[2019-02-09] VITALS (24 sets, daily range): BP systolic 104–148; BP diastolic 58–92
[2019-02-09 06:51] LABS: HEMATOCRIT 31.5 % (36.0-48.0); HEMOGLOBIN 10.3 g/dL (12-16); MCH 29.5 pg (26.0-34.0); MCHC 32.7 g/dL (31.0-37.0); MCV 90.3 fL (80.0-100.0); MEAN PLATELET VOLUME 10.1 fL (7.4-10.4); RBC 3.49 10x6/uL (4.00-5.40); RDW 15.3 % (11.5-14.5)
[2019-02-09 06:52] LABS: ALBUMIN 2.4 g/dL (3.4-5.0); BILIRUBIN - TOTAL 0.84 mg/dL (0.2-1.3); CALCIUM 8.3 mg/dL (8.5-10.1); CREATININE - SERUM 1.2 mg/dL (0.6-1.3); PROTEIN - SERUM 5.5 g/dL (6.4-8.2)
[2019-02-09 07:03] LABS: ANION GAP 8.5 mmol/L (8-16); POTASSIUM - SERUM 4.5 mmol/L (3.5-5.1)
--- NOTE | 2019-02-09 07:38 | NUR ---
UP IN CHAIR AWAKE AT THIS TIME FEEDING SELF BREAKFAST. NO ACUTE DISTRESS NOTED. PT ALERT AND ORIENTED. CALL LIGHT IN REACH. PERSONAL ITEMS IN REACH. WILL CONTINUE PLAN OF CARE.
--- NOTE | 2019-02-09 09:37 | NUR ---
PUMA SEGURA AT THIS TIME PER DR MONTES ORDERS. PT ALSO RECIEVED SIOBHAN CARE. NO ACUTE DISTRESS NOTED.CHARLIE LCONTINUE PLAN OF CARE.
--- NOTE | 2019-02-09 10:50 | NUR ---
100ML SEROUS FLUID REMOVED FROM HENRY DRAIN AT THIS TIME. PT UP IN CHAIR. DENIES ANY NEEDS. WILL CONTINUE PLAN OF CARE.
--- NOTE | 2019-02-09 11:04 | NUR ---
Nutrition Follow Up: Pt was asleep at the time of RD visit. Interview deferred at this time. Diet: ADA PO Intake: 57% meal avg I<O Wt gain noted No BM since admit Labs reviewed Meds noted including Reglan Rec continue current diet. RD following.
--- NOTE | 2019-02-09 12:54 | NUR ---
UP IN CHAIR AWAKE AT THIS TIME. DENIES ANY NEEDS. NO ACUTE DISTRESS NOTED. CALL LIGHT IN REACH. WILL CONTINUE PLAN OF CARE.
--- NOTE | 2019-02-09 13:56 | NUR ---
CONTINENT VOID NOTED TO TOILET AT THIS TIME. STAFF ASSISTED PT WITH WALK VIA STAND BY ASSIST, PT USES WALKER. NO ACUTE DISTRESS NOTED. WILL CONTINUE PLAN OF CARE.
--- NOTE | 2019-02-09 14:54 | NUR ---
SUBSTERNAL DRESSING CHANGE PROVIDED AT THIS TIME PER ORDERS TO CHANGE DAILY. CHANGED TO ORDER USING STERILE PROCEDURE. NO ACUTE DISTRES NOTED. NO S/S OF REDNESS, EDEMA, DRAINAGE NOTED. PT UP IN BED AWAKE. DENIES ANY NEEDS. WILL CONTINUE PLAN OF CARE.
--- NOTE | 2019-02-09 16:56 | NUR ---
NO ACUTE DISTRESS NOTED.NO CHANGE. PT UP IN BED RESTING, RESPIRATIONS STEADY AND UNLABORED RATE. AWAKENS EASILY WHEN SPOKEN TO. CALL LIGHT AND PERSONAL ITEMS IN REACH. WILL CONTINUE PLAN OF CARE.
--- NOTE | 2019-02-09 17:21 | NUR ---
UP IN CHAIR BESIDE BED EATING SUPPER AND VISITING WITH VISITOR. NO ACUTE DISTRESS NOTED. WILL CONTINUE PLAN FO CARE.
--- NOTE | 2019-02-09 18:25 | NUR ---
ASSISTED TO TOILET AT THIS TIME VIA STAND BY ASSIST. CONTINENT VOID NOTED. NO ACUTE DISTRESS NOTED. CALL LIGHT IN REACH. UP IN CHAIR AT THIS TIME. WILL CONTINUE PLAN OF CARE.
--- NOTE | 2019-02-09 19:40 | NUR ---
REPORT RECEIVED, SHIFT ASSESSMENT COMPLETED PER FLOW SHEET. SITTING IN CHAIR. AAOX4. PPP. TMP SET TO VVI 60, VMA 15. LT SUBSTERNAL CT TO HENRY DRAIN COMPRESSED, SEROSANGUINEOUS OUTPUT NOTED. DENIES NEEDS. SEE FLOW SHEET FOR COMPLETE ASSESSMENT. WILL CONTINUE TO MONITOR. CALL LIGHT WITHIN REACH.
--- NOTE | 2019-02-09 20:49 | NUR ---
SCHEDULED MEDS GIVEN, WATER PROVIDED. NO DIFFICULTY SWALLOWING. C/O PAIN, PRN PERCOCET GIVEN. DENIES OTHER NEEDS. CALL LIGHT WITHIN REACH. WILL CONTINUE TO MONITOR.
--- NOTE | 2019-02-09 22:00 | NUR ---
RESTING, DENIES NEEDS, CALL LIGHT WITHIN REACH.
--- NOTE | 2019-02-09 23:35 | NUR ---
REASSESSMENT COMPLETED PER FLOW SHEET, SEE FOR DETAILS. NO ACUTE CHANGES NOTED. DENIES NEEDS. CALL LIGHT WITHIN REACH. WILL CONTINUE TO MONITOR.
[2019-02-10] VITALS (24 sets, daily range): BP systolic 120–151; BP diastolic 45–73
--- NOTE | 2019-02-10 01:00 | NUR ---
NO ACUTE CHANGES NOTED, RESTING COMFORTABLY. DENIES NEEDS. WILL CONTINUE TO MONITOR.
--- NOTE | 2019-02-10 03:01 | NUR ---
REASSESSMENT COMPLETED PER FLOW SHEET, SEE FOR DETAILS. NO ACUTE CHANGES NOTED. ASSISSTED OOB TO BR. VOID X1. ASSISSTED BACK IN BED. DENIES OTHER NEEDS. CALL LIGHT WITHIN REACH.
--- NOTE | 2019-02-10 05:00 | NUR ---
COMPLETE BED BATH GIVEN, COMPLETE BED LINEN CHANGE PROVIDED. TOLERATED WELL.
[2019-02-10 06:30] LABS: HEMATOCRIT 31.7 % (36.0-48.0); HEMOGLOBIN 10.3 g/dL (12-16); MCH 29.5 pg (26.0-34.0); MCHC 32.5 g/dL (31.0-37.0); MCV 90.8 fL (80.0-100.0); MEAN PLATELET VOLUME 9.9 fL (7.4-10.4); RBC 3.49 10x6/uL (4.00-5.40); WBC 15.5 10x3/uL (4.8-10.8)
--- NOTE | 2019-02-10 06:30 | NUR ---
ASSISSTED OOB TO CHAIR, CALL LIGHT AND BELONGINGS WITHIN REACH.
[2019-02-10 07:07] LABS: ALBUMIN 2.5 g/dL (3.4-5.0); ANION GAP 13.1 mmol/L (8-16); BILIRUBIN - TOTAL 0.89 mg/dL (0.2-1.3); CALCIUM 8.5 mg/dL (8.5-10.1); CARBON DIOXIDE 27.4 mmol/L (21.0-32.0); CREATININE - SERUM 1.1 mg/dL (0.6-1.3); POTASSIUM - SERUM 4.5 mmol/L (3.5-5.1); PROTEIN - SERUM 5.7 g/dL (6.4-8.2)
--- NOTE | 2019-02-10 07:20 | NUR ---
SHIFT REPORT RECEIVED. A&O X 4. UP IN CHAIR. ON 2L OF O2 VIA NC. LIJ SALINE LOCKED. MIDSTERNAL DRESSING C/D/I. SUBSTERNAL DRESING CDI. HENRY DRAIN IN PLACE WITH SEROSANGUINOUS DRAINAGE NOTED. ATRIAL TPM WIRE COILED AND SECURED. VENTRICULAR TPM WIRE CONNECTED. PACEMAKER VVI/RATE60/VMA15. SBP IN 140S AT THIS TIME. RATES PAIN 5/10 AT INCISION SITE. PULLS 500-750 ON INCENTIVE SPIROMETER. RL HARVES SITES HUMAN RESOURCES INTERN. ANGY HOSE ON BOTH LE. COMPLETE SHIFT ASSESSMENT CHARTED IN FLOWSHEET. CALL LIGHT IN REACH. WILL CONTINUE TO MONITOR.
--- NOTE | 2019-02-10 09:40 | NUR ---
SUBSTERNAL DRESSING CHANGED PER ORDERS. IODINE OITMENT APPLIED TO AREA, BIO PATCH APPLIED TO TPM WIRES. 4X4'S USED TO COVER PREVIOUS CT INSERTION SITES. TAGEDERM DRESSING APPLIED OVER SITE. PT RESTING COMFORTABLY. ORAL CARE PRODUCTS PROVIDED. NO FURTHER NEEDS AT THIS TIME. WILL CONTINUE TO MONITOR.
--- NOTE | 2019-02-10 10:50 | NUR ---
DR. MONTES AT BEDSIDE. CHANGED TPM SETTINGS TO VVI/R-70.
--- NOTE | 2019-02-10 13:20 | NUR ---
VENOUS ACCESS NURSE AT BEDSIDE.
--- NOTE | 2019-02-10 14:15 | NUR ---
RIJ CVL DC'D PER ORDERS. PRESSURE APPLIED TO AREA FOR ABOUT 10MIN. PT RESTING COMFORTABLY IN BED. NO FURTHER NEEDS. WILL CONTINUE TO MONITOR.
--- NOTE | 2019-02-10 16:40 | NUR ---
AMBULATED TO BATHROOM WITH MINIMAL ASSIST. NO STOOL NOTED. DINNER TRAY DELIVERED AND SET UP. NO FURTHER NEEDS AT THIS TIME.
--- NOTE | 2019-02-10 17:39 | NUR ---
AMBULATED TO BATHROOM. MODERATE AMOUNT OF LIGHT BROWN, FORM STOOL NOTED. NO FURTHER NEEDS AT THIS TIME. WILL CONTINUE TO MONITOR.
--- NOTE | 2019-02-10 19:00 | NUR ---
REPORT REC'D,PT CARE ASSUMED. ASSESSMENT COMPLETED PER FLOWSHEETS. PT SITTING IN CHAIR AT THIS TIME ALERT AND ORIENTED X4, CM SHOWS PACED HR AT 70, TPM INTACT AND SECURED, MIDSTERNAL DRESSING INTACT AND CLEAN, SUBSTERNAL DRAIN INTACT WITH SEROUS DRAINGE.EMTY 40CC DRAINAGE AND COMPRESSED THE DRAIN. PPP. CALL LIGHT IN REACH. WILL CONT TO MONITOR.
--- NOTE | 2019-02-10 20:00 | NUR ---
PT REQUESTED TO RETURN TO BAD, ASSISTED BY X2 NURSE, PT CHUCK WELL. REPOSITIONED FOR COMFORT. PT C/O PAIN 6/10 ON SCALE. PAIN MED GIVEN PER ORDER. WILL CONT TO MONITOR.
--- NOTE | 2019-02-10 21:15 | NUR ---
SCHDULED MEDS GIVEN PER ORDER WITHOUT DIFFIC. PT CHUCK WELL. DENIES ANY DISCOMFORT AT THIS TIME.VSS. PACED ON CM. CONT TO MONITOR.
--- NOTE | 2019-02-10 23:00 | NUR ---
REASSESSMENT COMPLETED PER FLOWSHEETS. VSS. NO ACUTE CHANGES IN PT CONDITION. NO NEEDS VOICES AT THIS TIME. CALL LIGHT IN REACH. WILL CONT TO MONITOR.
[2019-02-11] VITALS (25 sets, daily range): BP systolic 130–163; BP diastolic 52–72
--- NOTE | 2019-02-11 02:14 | NUR ---
0214 CALL LIGHT ANSWERED. PT AMBULATED TO BATHROOM WITH MINIMAL ASSISTANCE. 0216 AFTER PT VOIDED. RHYTHM CHANGE UPON PT MOVEMENT. FAILURE TO CAPTURE PACER SPIKE. PT ASSISTED IN BED RNX3 AT BEDSIDE. CRASH CART PREPPED. 0218 WHEN IN BED PT PACEMAKER BEGINING TO CAPTURE. PACEMAKER BATTERY CHANGED PER PROTOCOL. WILL NOTIFY IN AM.
--- NOTE | 2019-02-11 03:00 | NUR ---
REASSESSMENT COMPLETED PER FLOWSHEETS. PT RESTING QUIETLY WITHOUT DISTRESS AT THIS TIME. PACED ON MONITOR. NO NEEDS VOICES. CALL LIGHT IN REACH. CONT TO MONITOR.
[2019-02-11 05:20] LABS: HEMATOCRIT 32.8 % (36.0-48.0); HEMOGLOBIN 10.6 g/dL (12-16); MCH 29.4 pg (26.0-34.0); MCHC 32.3 g/dL (31.0-37.0); MCV 90.9 fL (80.0-100.0); MEAN PLATELET VOLUME 9.6 fL (7.4-10.4); RBC 3.61 10x6/uL (4.00-5.40); RDW 14.9 % (11.5-14.5); WBC 13.9 10x3/uL (4.8-10.8)
[2019-02-11 05:31] LABS: ALBUMIN 2.4 g/dL (3.4-5.0); ANION GAP 9.2 mmol/L (8-16); BILIRUBIN - TOTAL 0.91 mg/dL (0.2-1.3); CALCIUM 8.7 mg/dL (8.5-10.1); CARBON DIOXIDE 30.5 mmol/L (21.0-32.0); POTASSIUM - SERUM 4.7 mmol/L (3.5-5.1); PROTEIN - SERUM 5.7 g/dL (6.4-8.2)
--- NOTE | 2019-02-11 06:16 | NUR ---
DR MANZANARES INFORMED OF PT STATUS. ORDER TO INCREASE TPM OUTPUT TO 20. RECEIVED. OUTPUT INCREASED. VSS WILL CONTINUE TO MONITOR.
--- NOTE | 2019-02-11 10:18 | NUR ---
0920: REC'D CALL FROM DR. CRAMER TO CALL [employer] REP TO SEE WHAT TIME HE COULD BE HERE TODAY. 0927: PAGED PLACED TO [employer] REP THROUGH ANSWERING SERVICE. 0953: [employer] REP RETURNED CALL. STATED THE EARLIEST HE COULD BE HERE TODAY WOULD BE 1400 OR 1500. 0955: DR. MANZANARES NOTIFIED OF REP'S MESSAGE. INSTRUCTED BY DR. MANZANARES TO CALL REP BACK FOR PLACEMENT OF PACEMAKER @ 1400. 1002: [employer] REP CALLED BACK THROUGH ANSWERING SERVICE TO INFORM OF TIME FOR PACEMAKER PLACEMENT.
[2019-02-11 12:38] LABS: APTT 26.5 SECONDS (22.8-39.4); INR 1.1 (0.85-1.17); PROTIME 13.6 SECONDS (11.6-15.0)
--- NOTE | 2019-02-11 13:50 | NUR ---
L BRACHIAL ART LINE DC'D. MANUAL PRESSURE HELD X 5 MIN. 2X2 DRESSING SECURED WITH TAPE TO SITE.
--- NOTE | 2019-02-11 14:16 | NUR ---
1400: STAT PAGE PLACED TO [employer] REP. OR CREW HERE TO TRANSPORT PT. 1410: CALL RETURNED BY [employer] REP. IN HOSPITAL PARKING LOT. PATIENT TRANPORTED TO OR VIA BED.
--- NOTE | 2019-02-11 16:20 | NUR ---
RETURN FROM OR VIA BED. CONNECTED TO MONITOR. VS OBTAINED. DRESSING TO OPERATIVE SITE OF L SHOULDER. L ARM IN SLING.
--- NOTE | 2019-02-11 21:00 | NUR ---
1900 REPORT RECEIVED CARE ASSUMED. ASSESSMENT DONE SEE FLOW SHEET VSS. NO SIGNS OF ACUTE DISTRESS NOTED. INCREASE IN TEMP NOTED. 1999 DR MANZANARES INFORMED OF PT STATUS. ORDER TO CONTINUE IS AND COUGH AND TURN. 2100 MEDS GIVEN PER OCT. VSS WILL CONTINUE TO MONITOR.
--- NOTE | 2019-02-11 21:00 | NUR ---
1900 REPORT RECEIVED CARE ASSUMED ASSESSMENT DONE SEE FLOW SHEET VSS. 2100 MEDS GIVEN PER MAR VSS WILL CONTIUE TO MONITOR.
--- NOTE | 2019-02-11 23:00 | NUR ---
REASSESSMENT DONE SEE FLOW SHEET VSS.
[2019-02-12] VITALS (24 sets, daily range): BP systolic 133–177; BP diastolic 51–93
--- NOTE | 2019-02-12 01:00 | NUR ---
PT IN BED RESTING WATER PROVIDED PER REQUEST WILL CONTINUE TO MONITOR.
--- NOTE | 2019-02-12 05:00 | NUR ---
0300 REASSESSMENT DONE SEE FLOW SHEET VSS. 0500 IO COLLECTED DAILY WEIGHT COLLECTED WILL CONTINUE TO MONITOR.
[2019-02-12 08:49] LABS: BASOPHILS 0.3 % (0-2); EOSINOPHILS 8.1 % (0-7); HEMATOCRIT 33.1 % (36.0-48.0); HEMOGLOBIN 10.6 g/dL (12-16); IMMATURE GRANULOCYTES 0.4 % (0-5); LYMPHOCYTES 10.4 % (15-50); MCH 29.5 pg (26.0-34.0); MCV 92.2 fL (80.0-100.0); MEAN PLATELET VOLUME 9.4 fL (7.4-10.4); MONOCYTES 8.5 % (2-11); NEUTROPHILS 72.3 % (40-80); RBC 3.59 10x6/uL (4.00-5.40); RDW 14.9 % (11.5-14.5); WBC 12.3 10x3/uL (4.8-10.8)
[2019-02-12 08:50] LABS: PLATELET COUNT 308 10x3/uL (130-400)
[2019-02-12 08:58] LABS: ALBUMIN 2.4 g/dL (3.4-5.0); ANION GAP 11.1 mmol/L (8-16); BILIRUBIN - TOTAL 0.93 mg/dL (0.2-1.3); CALCIUM 8.6 mg/dL (8.5-10.1); CARBON DIOXIDE 30.3 mmol/L (21.0-32.0); CREATININE - SERUM 1.2 mg/dL (0.6-1.3); POTASSIUM - SERUM 4.4 mmol/L (3.5-5.1); PROTEIN - SERUM 5.9 g/dL (6.4-8.2)
--- NOTE | 2019-02-12 20:00 | NUR ---
AWAKE AND ALERT .DENIES PAIN OR ANY NEEDS AT THIS TIME.
--- NOTE | 2019-02-12 22:00 | NUR ---
OOB TO RESTOOM. VOIDED
[2019-02-13] VITALS (23 sets, daily range): BP systolic 100–172; BP diastolic 43–60
--- NOTE | 2019-02-13 06:45 | NUR ---
OOB TO BATHROOM. VOIDED. UP TO CHAIR FOR BREAKFAST
--- NOTE | 2019-02-13 08:51 | NUR ---
0700 PT RECEIVED UP IN CHAIR, AAO, HR PACED. VITAL SIGNS STABLE. L MIDLINE DRESSING CDI. SUBSTERNAL HENRY DRAIN COMPRESSED. CALL LIGHT WITHIN REACH. 0845 ATE 100% OF BREAKFAST AND MEDS TAKEN WITHOUT DIFFICULTY.
[2019-02-13] MEDS ORDERED: COZAAR50 MG PO (10:53)
[2019-02-13] MEDS ORDERED: LASIX40 MG PO (10:54)
[2019-02-13] MEDS ORDERED: K-DUR20 MEQ PO (10:55)
[2019-02-13] MEDS ORDERED: COLACE100 MG PO (10:56)
[2019-02-13] MEDS ORDERED: PERCOCET 5-3251 TAB PO (10:58)
--- NOTE | 2019-02-13 11:10 | NUR ---
HENRY DRAIN AND TPM WIRES REMOVED BY JUAN FRANCISCO ZAZUETA
--- NOTE | 2019-02-13 11:45 | NUR ---
1030 TPM WIRES AND HENRY REMOVED BY XOCHITL RN. 1145 ASSISTED TO CHAIR
--- NOTE | 2019-02-13 13:10 | NUR ---
1300 CHG BATH COMPLETE.
--- NOTE | 2019-02-13 13:49 | NUR ---
Nutrition follow up Diabetic diet with 75,100,90% Weight 218lb BG 235,138 today Pt sleeping during rounds Noted home soon RD following per protocol
--- NOTE | 2019-02-13 15:23 | NUR ---
Rehab Prescreening Consult recieved and the chart has been reviewed. She is [facility] managed Medicare and will require a preauth for the acute rehab. All information will be submitted for their approval. Daxa Garcia RN Clinical liaison, Rehab
--- NOTE | 2019-02-13 16:20 | NUR ---
1500 AMBULATED WITH PT. 1600 PT STATES SHE DOES NOT WANT TO GO TO REHAB, BUT WE WILL WORK ON INCREASING AMBULATION IN AM.
--- NOTE | 2019-02-13 17:34 | NUR ---
1700 ATE 100% DINNER.
--- NOTE | 2019-02-13 17:52 | MORECARE ---
CASE MANAGEMENT DISCHARGE SUMMARY PATIENT: MILI NATH UNIT: [id number] ADM DATE: 02/06/19 AGE: 78 : 40 SEX: F [facility] AUTHOR: LILIA CHAVEZ PHYSICIAN: REFERRING PHYSICIAN: KAT MONTES MD DATE OF SERVICE: 02/13/19 Discharge Plan Patient Name: MILI NATH Facility: [facility]:[place] : 1940 Planned Disposition: Home Anticipated Discharge Date: Discharge Date: Expected LOS: Initial Reviewer: [email or web address] Initial Review Date: 02/06/2019 Generated: 02/13/19 6:52 pm Comments DCP- Discharge Planning Updated by [email or web address]: Dahiana Love on 02/13/19 4:[address] CM received notice that for prescreen inpatient rehab. CM notified Natasha with inpatient rehab. CM later was notified that patient is refusing rehab she wants to go home. CM will continue to follow and assist as needed with discharge planning / needs. DCP- Discharge Planning Updated by [email or web address]: Dahiana Love on 02/06/19 4:[address] Patient Name: MILI NATH Admission Status: Urgent Accout number: [id number] Admission Date: 02-06-2019 : 1940 Admission Diagnosis: Attending: KAT MONTES Current LOS: 1 Anticipated DC Date: Planned Disposition: Home Primary Insurance: [facility] MEDICARE SOLUTIONS Discharge Planning Comments: CM met with patient and daughter(Ulices) at bedside after explaining CM role and obtaining verbal consent. Patient lives at home alone and plans to return there upon discharge. Patient feels this would be a safe discharge. CM discussed availability / needs of home health and medical equipment. Patient denies any discharge needs at this time. Patient states her daughter will be staying with her for the next several weeks. Patient states she will have Ulices drive her home upon discharge. CM will continue to follow and assist as needed with discharge planning / needs. Mill Roll Rewinder: Dahiana Love DCPIA - Discharge Planning Initial Assessment Updated by [email or web address]: Dahiana Love on 02/06/19 5:05 pm * Is the patient Alert and Oriented? No * How many steps to enter\exit or inside your home? * PCP JOSEP * [facility] * Preadmission Environment Home Alone * ADLs Independent * Equipment None * List name and contact numbers for known caregivers / representatives who currently or will assist patient after discharge: ULICES NATH - DAUGHTER -[phone], * Verbal permission to speak to the caregivers and representatives has been obtained from the patient. N/A * Community resources currently utilized None * Additional services required to return to the preadmission environment? No * Can the patient safely return to the preadmission environment? Yes * Has this patient been hospitalized within the prior 30 days at any hospital? Yes Last DP export: 02/06/19 4:16 p Patient Name: MILI NATH Page [id number] at 1752 All edits/amendments must be made on the electronic document DICTATION DATE: 02/13/191750 BURNER TENDER: ALEX 02/13/191750 RPT#: [id number] DC DATE: STATUS: ADM IN [facility] [address] [place] [address] END OF REPORT
[2019-02-14] VITALS (8 sets, daily range): BP systolic 129–168; BP diastolic 46–59
--- NOTE | 2019-02-14 09:21 | NUR ---
0700 RECEIVED IN BED. VITAL SIGNS STABLE, L ARM IN SLING. L MIDLINE DRESSING CDI, SALINE LOCKED. ALL DRESSINGS CDI. SEE SHIFT ASSESSMENT FOR DETAILS. 0730 DR MONTES IN UNIT AND NOTIFIED OF 99.1 TEMP. 0900 TOOK MEDS, ATE 100% BREAKFAST, AND WALKED WITH THERAPY.
--- NOTE | 2019-02-14 10:25 | NUR ---
1015 MIDLINE D/C'D TIP INTACT, NO SIGNS OF BLEEDING.
[2019-02-14] MEDS ORDERED: LOPRESSOR25 MG PO (11:07)
--- NOTE | 2019-02-14 11:41 | NUR ---
1130 REVIEWED D/C TEACHING WITH PATIENT AND HER DAUGHTER. THEY HAD NO QUESTIONS. ASSISTED TO CAR.
--- NOTE | 2019-02-14 18:03 | MORECARE ---
CASE MANAGEMENT DISCHARGE SUMMARY PATIENT: MILI NATH UNIT: [id number] ADM DATE: 02/06/19 AGE: 78 : 40 SEX: F ROOM/BED: [facility] AUTHOR: LILIA CHAVEZ PHYSICIAN: REFERRING PHYSICIAN: KAT MONTES MD DATE OF SERVICE: 02/14/19 Discharge Plan Patient Name: MILI NATH Facility: [facility]:[place] : 1940 Planned Disposition: Home Anticipated Discharge Date: Discharge Date: 02/14/2019 Expected LOS: Initial Reviewer: [email or web address] Initial Review Date: 02/06/2019 Generated: 02/14/19 7:03 pm Comments DCP- Discharge Planning Updated by [email or web address]: Dahiana Love on 02/14/19 4:[address] Patient Name: MILI NATH Encounter No: [id number] : 1940 Primary Insurance: [facility] MEDICARE SOLUTIONS Anticipated DC Date: Planned Disposition: Home External Planned Provider: : D/C AMANDA 02/14/19 @ 1005 DCP follow-up note: Patient and family in agreement with discharge plan. No changes to plan. Case management will follow and assist as needed. Dahiana Love DCP- Discharge Planning Updated by [email or web address]: Dahiana Love on 02/13/19 4:[address] CM received notice that for prescreen inpatient rehab. CM notified Natasha with inpatient rehab. CM later was notified that patient is refusing rehab she wants to go home. CM will continue to follow and assist as needed with discharge planning / needs. DCP- Discharge Planning Updated by [email or web address]: Dahiana Love on 02/06/19 4:[address] Patient Name: MILI NATH Admission Status: Urgent Accout number: [id number] Admission Date: 02-06-2019 : 1940 Admission Diagnosis: Attending: KAT MONTES Current LOS: 1 Anticipated DC Date: Planned Disposition: Home Primary Insurance: [facility] MEDICARE SOLUTIONS Discharge Planning Comments: CM met with patient and daughter(Ulices) at bedside after explaining CM role and obtaining verbal consent. Patient lives at home alone and plans to return there upon discharge. Patient feels this would be a safe discharge. CM discussed availability / needs of home health and medical equipment. Patient denies any discharge needs at this time. Patient states her daughter will be staying with her for the next several weeks. Patient states she will have Ulices drive her home upon discharge. CM will continue to follow and assist as needed with discharge planning / needs. Belt Sewer: Dahiana Love DCPIA - Discharge Planning Initial Assessment Updated by [email or web address]: Dahiana Love on 02/06/19 5:05 pm * Is the patient Alert and Oriented? No * How many steps to enter\exit or inside your home? * PCP JOSEP * [facility]acy [facility] - [facility] * Preadmission Environment Home Alone * ADLs Independent * Equipment None * List name and contact numbers for known caregivers / representatives who currently or will assist patient after discharge: ULICES NATH - DAUGHTER -[phone], * Verbal permission to speak to the caregivers and representatives has been obtained from the patient. N/A * Community resources currently utilized None * Additional services required to return to the preadmission environment? No * Can the patient safely return to the preadmission environment? Yes * Has this patient been hospitalized within the prior 30 days at any hospital? Yes Coverage Notice Reviewer: [id number] - Dahiana Love Notice Issued Date-Time: 02/14/2019 10:05 Notice Type: IM Discharge Notice Notice Delivered To: Patient Relationship to Patient: Self Manager Technology Name: Delivery Method: HAND - Hand Delivered Kacie Days: Prior Verbal Notification: Recipient Understood Notice: Yes Recipient Signature: Yes Med Rec Note Co-signed by Attending: Coverage Notice Comment: Last DP export: 02/13/19 4:52 p Patient Name: MILI NATH Page [phone] at 1803 All edits/amendments must be made on the electronic document DICTATION DATE: 02/14/191801 FUR COAT SEWER: ALEX 02/14/191801 RPT#: [id number] DC DATE:02/14/19 STATUS: DIS IN [facility] [address] [place] [address] END OF REPORT
--- NOTE | 2019-02-22 13:11 | OP ---
PATIENT NAME: MILI NATH MEDICAL RECORD: [id number] :40 [facility]ATION[facility] ADMISSION DATE:02/06/19 SURGEON: JAE SCHMITT MD DATE OF OPERATION: 02/11/2019 SURGEON: Jae Schmitt MD ANESTHESIA: General, Dr. Redding. OPERATION PERFORMED: Insertion of dual chamber pacing system. PREOPERATIVE DIAGNOSIS: Sick sinus syndrome with profound bradycardia. POSTOPERATIVE DIAGNOSES: Sick sinus syndrome with profound bradycardia. INDICATION FOR OPERATION: Sick sinus syndrome with profound bradycardia. FINDINGS OF THE OPERATION: The pulse generator, Medtronic [id number], serial number [id number]. Right atrial lead, Medtronic model number 5076-45, serial number [id number]. Ventricular lead Medtronic model number 4074-52, serial number [id number]. LEAD ANALYSIS: Atrial lead threshold 1.7 volts, current threshold 475 ohms. P-wave 2.1. Ventricular lead threshold 1 volt, current threshold 2 milliamps, impedance 676 ohms, R-wave 1.4. ESTIMATED BLOOD LOSS: Less than 5 cc. DESCRIPTION OF PROCEDURE: After informed consent, adequate preoperative medication evaluation, the patient was brought to the operating room, placed on table in supine position. After induction of general anesthesia and application of appropriate monitoring devices, the left chest was prepped and draped in sterile field, utilizing Betadine scrub, alcohol, and Betadine solution. Betadine-impregnated drape was also used, 1% lidocaine was infiltrated in the left subclavicular space. Incision was made. Dissection carried down the fascia. Hemostasis maintained with electrocautery. A pacemaker pocket was formed. Subclavian vein was cannulated with the introducers, leads placed in the heart. The atrial lead had to be repositioned and the above findings were noted. It was felt to be a good acute lead with active fixation. The leads were secured to the muscle. The leads were then connected to the pulse generator and pacemaker placed in the pocket. Pacemaker fired, captured, and sensed appropriately. Pocket was irrigated. Instrument count and sponge count were correct times 2. The pocket was closed in layers utilizing 3-0 Vicryl on deep subcutaneous tissue, 5-0 subcuticular Monocryl on the skin. Sterile dressings were applied. The patient tolerated the procedure well and transferred to CV ICU in satisfactory condition. TRANSINT:[id number] Voice Confirmation ID: [id number] DOCUMENT ID: [id number] OPERATIVE REPORT [id number] MILI NATH EDWARD MD at 1311 CC: [id number] DICTATION DATE: 02/11/19 1616 WESTERN FELT HAT BLOCKER: 02/11/19 2245 DIS IN 02/14/19 [place] [id number] [place] [id number]
== END 2019-02-14 11:42 | disposition home or self-care (01) | DRG 229 ==
LOC: D.CVICU 05:20 → D.SDCHOLD 05:20 → D.CVICU 12:39
PROVIDERS: Internal Medicine Cardiovascular Disease; ADMIT Thoracic Surgery (Cardiothoracic Vascular Surgery); ATTEND Thoracic Surgery (Cardiothoracic Vascular Surgery)
PROC: 021209W Bypass Coronary Artery, Three Arteries from Aorta with Autologous Venous Tissue, Open Approach (ICD-10-PCS; 2019-02-06)
PROC: 06BP4ZZ Excision of Right Saphenous Vein, Percutaneous Endoscopic Approach (ICD-10-PCS; 2019-02-06)
PROC: B24BZZ4 Ultrasonography of Heart with Aorta, Transesophageal (ICD-10-PCS; 2019-02-06)
PROC: 5A1221Z Performance of Cardiac Output, Continuous (ICD-10-PCS; 2019-02-06)
PROC: 02L70CK Occlusion of Left Atrial Appendage with Extraluminal Device, Open Approach (ICD-10-PCS; 2019-02-06)
PROC: 02100Z9 Bypass Coronary Artery, One Artery from Left Internal Mammary, Open Approach (ICD-10-PCS; principal; 2019-02-06 07:30)
PROC: 02580ZZ Destruction of Conduction Mechanism, Open Approach (ICD-10-PCS; 2019-02-06 07:30)
PROC: 05HY33Z Insertion of Infusion Device into Upper Vein, Percutaneous Approach (ICD-10-PCS; 2019-02-09)
PROC: 05HY33Z Insertion of Infusion Device into Upper Vein, Percutaneous Approach (ICD-10-PCS; 2019-02-10)
PROC: 0JH606Z Insertion of Pacemaker, Dual Chamber into Chest Subcutaneous Tissue and Fascia, Open Approach (ICD-10-PCS; 2019-02-11)
PROC: 02H63JZ Insertion of Pacemaker Lead into Right Atrium, Percutaneous Approach (ICD-10-PCS; 2019-02-11)
PROC: 02HK3JZ Insertion of Pacemaker Lead into Right Ventricle, Percutaneous Approach (ICD-10-PCS; 2019-02-11)
DX: I25.10 Atherosclerotic heart disease of native coronary artery without angina pectoris (principal); I48.91 Unspecified atrial fibrillation; E11.9 Type 2 diabetes mellitus without complications; I65.29 Occlusion and stenosis of unspecified carotid artery

== ENCOUNTER → 2019-03-15 10:07 | Outpatient (CLI) | payer MEDICARE ==
[2019-02-07 12:50] VITALS: BMI 35.5
[~2019-03-15 10:07] MED LIST changes: +COLACE100 MG PO; +COZAAR50 MG PO; +K-DUR20 MEQ PO; +LASIX40 MG PO; +LOPRESSOR25 MG PO; +PERCOCET 5-3251 TAB PO
[2019-03-15 11:58] LABS: HEMATOCRIT 38.1 % (36.0-48.0); HEMOGLOBIN 12.3 g/dL (12-16); MCH 30.1 pg (26.0-34.0); MCHC 32.3 g/dL (31.0-37.0); MCV 93.2 fL (80.0-100.0); RBC 4.09 10x6/uL (4.00-5.40); RDW 15.1 % (11.5-14.5); WBC 11.1 10x3/uL (4.8-10.8)
[2019-03-15 13:02] LABS: ALBUMIN 3.5 g/dL (3.4-5.0); ANION GAP 13.5 mmol/L (8-16); BILIRUBIN - TOTAL 0.51 mg/dL (0.2-1.3); CALCIUM 9.1 mg/dL (8.5-10.1); CARBON DIOXIDE 27.7 mmol/L (21.0-32.0); CREATININE - SERUM 1.1 mg/dL (0.6-1.3); POTASSIUM - SERUM 4.2 mmol/L (3.5-5.1); PROTEIN - SERUM 7.1 g/dL (6.4-8.2)
== END | disposition home or self-care (01) ==
LOC: D.CN 10:00
PROVIDERS: ATTEND Thoracic Surgery (Cardiothoracic Vascular Surgery)
DX: J91.8 Pleural effusion in other conditions classified elsewhere (principal); D64.9 Anemia, unspecified; I48.91 Unspecified atrial fibrillation

== ENCOUNTER → 2019-08-03 08:36 | Outpatient (CLI) | payer MEDICARE ==
[2019-02-07 12:50] VITALS: BMI 35.5
== END | disposition home or self-care (01) ==
LOC: D.US 08:36
PROVIDERS: ATTEND Thoracic Surgery (Cardiothoracic Vascular Surgery)
DX: I65.29 Occlusion and stenosis of unspecified carotid artery (principal); I48.91 Unspecified atrial fibrillation

== ENCOUNTER → 2019-09-12 09:57 | Outpatient (CLI) | payer MEDICARE ==
[2019-02-07 12:50] VITALS: BMI 35.5
== END | disposition home or self-care (01) ==
LOC: D.HCCECHO 09:57
PROVIDERS: ATTEND Internal Medicine Cardiovascular Disease
DX: I10 Essential (primary) hypertension (principal)